=== PATIENT | female | born 1960 | race Two or more races ===

== ENCOUNTER 2021-02-11 15:12 | Emergency (ER) | payer MEDICARE, MEDICAID ==
[~2021-02-11] VITALS: Ht 160 cm; Wt 47.6 kg
[2021-02-11 19:40] VITALS: BP 149/84
== END 2021-02-11 19:50 | disposition home or self-care (01) ==
LOC: ER 15:12
DX: M47.812 Spondylosis without myelopathy or radiculopathy, cervical region (principal); M79.18 Myalgia, other site; M25.551 Pain in right hip; M25.511 Pain in right shoulder; E11.9 Type 2 diabetes mellitus without complications; I10 Essential (primary) hypertension; I25.2 Old myocardial infarction; F17.210 Nicotine dependence, cigarettes, uncomplicated; W18.09XA Striking against other object with subsequent fall, initial encounter; Y93.89 Activity, other specified; Y92.89 Other specified places as the place of occurrence of the external cause; Y99.8 Other external cause status
CPT/HCPCS: 72040; 73030; 73502; 93005